=== PATIENT | male | born 2000 | race Two or more races ===

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

== ENCOUNTER 2021-12-05 17:56 | Emergency (ER) | payer OTHER ==
[~2021-12-05] VITALS: Ht 170.2 cm; Wt 80.6 kg
[2021-12-05 19:46] VITALS: BP 138/82
[2021-12-05 20:03] LABS: Basophils # (auto) 0 10 ^3/uL (0-0.2); Basophils % (auto) 0.3 % (0.0-2.0); Eosinophils # (auto) 0 10 ^3/uL (0-0.8); Eosinophils % (auto) 0.1 % (0.0-7.0); Hematocrit 50.5 % (41.0-53.0); Hemoglobin 16.7 g/dL (13.5-17.5); Lymphocytes % (auto) 17.3 % (10.0-50.0); Mean Corpuscular Hemoglobin 31.1 pg (28.0-32.0); Mean Corpuscular Volume 94.4 fL (80.0-100.0); Monocytes # (auto) 0.8 10 ^3/uL (0-1.3); Monocytes % (auto) 7.1 % (0.0-12.0); Neutrophils # (auto) 8.6 10 ^3/uL (1.6-8.6); Neutrophils % (auto) 75.2 % (37.0-80.0); Nucleated Red Blood Cells % 0.1 %; Red Blood Cells 5.35 10^6/uL (4.5-5.90); Red Cell Distribution Width 12.7 % (11.8-14.3); White Blood Cell 11.5 10^3/uL (4.4-10.8)
[2021-12-05 20:06] LABS: Urine Bacteria MOD /hpf (None Seen); Urine Blood Negative /uL (Negative); Urine Mucus MANY (None Seen); Urine Specific Gravity 1.042 (1.001-1.035); Urine WBC 2 /hpf (0 - 3)
[2021-12-05 20:23] LABS: Albumin 5.2 g/dL (3.4-5.0); Calcium 9.3 mg/dL (8.5-10.1); Potassium 3.6 mmol/L (3.5-5.1)
[2021-12-05 20:23] LABS: Amphetamine Screen, Urine NEGATIVE (NEGATIVE); Barbiturate Scree,Urine NEGATIVE (NEGATIVE); Benzodiazephine Screen, Urine NEGATIVE (NEGATIVE); Cocaine Screen, Urine POSITIVE (NEGATIVE); Opiate Scree,Urine NEGATIVE (NEGATIVE); Phencyclidine Screen, Urine NEGATIVE (NEGATIVE)
[2021-12-05 20:25] LABS: BUN/Creatinine Ratio 13.1
[2021-12-05 20:27] LABS: Bilirubin, Total 1.3 mg/dL (0.2-1.0); Salicylate < 1.7 mg/dL (2.8-20.0); Total Protein 8.7 g/dL (6.4-8.2)
[2021-12-05 20:28] LABS: Acetaminophen < 2.0 ug/mL (10-30)
[2021-12-05 20:32] LABS: Cannabinoid Screen, Urine POSITIVE (NEGATIVE)
== END 2021-12-06 02:35 | disposition home or self-care (01) ==
LOC: ER 17:56
DX: S81.812A Laceration without foreign body, left lower leg, initial encounter (principal); S81.811A Laceration without foreign body, right lower leg, initial encounter; S31.119A Laceration without foreign body of abdominal wall, unspecified quadrant without penetration into peritoneal cavity, initial encounter; R45.851 Suicidal ideations; X78.1XXA Intentional self-harm by knife, initial encounter; Y93.89 Activity, other specified; Y92.89 Other specified places as the place of occurrence of the external cause; Y99.8 Other external cause status
CPT/HCPCS: 36415; 80053; 80307; 80320; 80329; 81001; 85025

== ENCOUNTER 2022-05-04 13:48 | Emergency (ER) | payer OTHER ==
[~2022-05-04] VITALS: Ht 170.2 cm; Wt 77.5 kg
[2022-05-04 14:58] VITALS: BP 150/81
[2022-05-04] MEDS ORDERED: CLIN300C8 PO (15:15)
[2022-05-04] MEDS ORDERED: IBUP600T27 PO (15:15)
== END 2022-05-04 15:23 | disposition home or self-care (01) ==
LOC: ER 13:48
DX: K04.7 Periapical abscess without sinus (principal)

== ENCOUNTER 2022-11-10 16:25 | Emergency (ER) | payer OTHER ==
[~2022-11-10] VITALS: Ht 172.7 cm; Wt 77.0 kg
[~2022-11-10 16:25] MED LIST: CLIN300C70 PO; IBUP-1454 PO
[2022-11-10 16:48] VITALS: BP 127/87
[2022-11-10 17:01] LABS: Basophils # (auto) 0 10 ^3/uL (0-0.2); Basophils % (auto) 0.4 % (0.0-2.0); Eosinophils # (auto) 0 10 ^3/uL (0-0.8); Eosinophils % (auto) 0.1 % (0.0-7.0); Hematocrit 48.2 % (41.0-53.0); Hemoglobin 16.8 g/dL (13.5-17.5); Lymphocytes % (auto) 21.5 % (10.0-50.0); Mean Corpuscular Hemoglobin 33.4 pg (28.0-32.0); Mean Corpuscular Hgb Conc. 34.9 g/dL (32.0-36.0); Mean Corpuscular Volume 95.7 fL (80.0-100.0); Monocytes # (auto) 0.9 10 ^3/uL (0-1.3); Monocytes % (auto) 9.5 % (0.0-12.0); Neutrophils # (auto) 6.4 10 ^3/uL (1.6-8.6); Neutrophils % (auto) 68.5 % (37.0-80.0); Nucleated Red Blood Cells % 0.2 %; Red Blood Cells 5.04 10^6/uL (4.5-5.90); Red Cell Distribution Width 12.6 % (11.8-14.3); White Blood Cell 9.4 10^3/uL (4.4-10.8)
[2022-11-10 17:22] LABS: Albumin 5.1 g/dL (3.4-5.0); Potassium 3.9 mmol/L (3.5-5.1)
[2022-11-10 17:26] LABS: Bilirubin, Total 1.2 mg/dL (0.2-1.0); Total Protein 8.7 g/dL (6.4-8.2)
[2022-11-10] MEDS ORDERED: FAMO20TA10 PO ×2 (20:33→20:35)
[2022-11-10] MEDS ORDERED: ZOFR4T PO ×2 (20:33→20:35)
== END 2022-11-10 21:39 | disposition home or self-care (01) ==
LOC: ER 16:25
DX: K29.70 Gastritis, unspecified, without bleeding (principal); R00.2 Palpitations; R07.89 Other chest pain; R10.13 Epigastric pain; Z79.1 Long term (current) use of non-steroidal anti-inflammatories (NSAID); Z79.2 Long term (current) use of antibiotics; Z79.899 Other long term (current) drug therapy
CPT/HCPCS: 36415; 71045; 80053; 83690; 83880; 84443; 84484; 85025; 93005

== ENCOUNTER 2022-11-18 07:04 | Emergency (ER) | payer OTHER ==
[~2022-11-18] VITALS: Ht 170.2 cm; Wt 79.1 kg
[~2022-11-18 07:04] MED LIST changes: +FAMO20TA10 PO; +ZOFR4T PO
[2022-11-18 07:54] VITALS: BP 141/94; PULSE 69; RESP 18; TEMP 97; O2SAT 96
[2022-11-18] MEDS ORDERED: ONDANSETRON ODT 4 MG TAB PO ONE (08:15)
[2022-11-18] MEDS ORDERED: MECLIZINE HCL 25 MG TAB PO ONE (08:15)
[2022-11-18] MEDS ORDERED: MECL1TAB31 PO (10:20)
[2022-11-18] MEDS ORDERED: ZOFR4T PO (10:20)
== END 2022-11-18 10:54 | disposition home or self-care (01) ==
LOC: ER 07:04
DX: R42 Dizziness and giddiness (principal); F32.9 Major depressive disorder, single episode, unspecified
CPT/HCPCS: 69209; 99283; J8597; Q0162; 69210